=== PATIENT | female | born 1955 | race Caucasian/White ===

== ENCOUNTER 2019-06-17 12:07 | Day surgery (SDC) | payer MEDICARE ==
[2019-06-17] MEDS ORDERED: LIDOCAINE 2% MDV (20MG/ML) 20ML VIAL IV ONE (12:08)
[2019-06-17] MEDS ORDERED: PROPOFOL 10 MG/ML VIAL IV ONE (12:08)
--- NOTE | 2019-06-18 08:20 | Operative Note ---
OPERATION: COLONOSCOPY to the cecum with cold biopsy forceps polypectomy x1. INDICATION: Prior history of colon polyps. The patient returns at this time after 5 years for surveillance. ANESTHESIA: Intravenous sedation was administered by the department of anesthesiology and included Diprivan titrated to effect. PROCEDURE: Following informed consent from this alert individual including a discussion of the risks and benefits of the procedure and an opportunity for the patient to ask questions, the patient was in the left lateral decubitus position. A digital rectal examination was performed. No abnormalities were noted. Following this, the Olympus [id number] video colonoscope was inserted into the rectum without resistance. The rectal mucosa had a normal appearance with normal folds and distensibility. The colonoscope was advanced up through the bowel to the level of the cecum without much difficulty. Throughout the bowel the mucosa appeared normal, the folds were normal, and the bowel was fairly well distensible. The cecum was defined by noting the appendiceal orifice and ileocecal valve. Colon preparation was good. From the base of the cecum, the colonoscope was then slowly withdrawn. No changes were noted until the rectum was reached. Within the rectum there was a 3 mm polyp noted which was removed with cold biopsy forceps. Retroflexion in the rectum revealed hypertrophied anal papilla. The endoscope was straightened and removed. The patient tolerated the procedure well and was returned to the recovery area in stable condition. IMPRESSION: 1. A 3 mm rectal polyp removed with biopsy forceps. 2. Hypertrophied anal papilla. RECOMMENDATIONS: The patient was advised to have recheck colonoscopy in 5 years' time or sooner if problems arise. Followup will otherwise be with Dr. Harman. As always, thank you for allowing me to participate in the care of your patient. KATIE
== END 2019-06-17 14:50 | disposition home or self-care (01) ==
LOC: HOP 12:07
PROVIDERS: ATTEND Internal Medicine Gastroenterology
DX: Z12.11 Encounter for screening for malignant neoplasm of colon (principal); Z86.010 Personal history of colon polyps; K62.1 Rectal polyp; K62.89 Other specified diseases of anus and rectum; E11.9 Type 2 diabetes mellitus without complications; E03.9 Hypothyroidism, unspecified; E78.00 Pure hypercholesterolemia, unspecified; K21.9 Gastro-esophageal reflux disease without esophagitis; M81.0 Age-related osteoporosis without current pathological fracture